=== PATIENT | male | born 1975 | race Caucasian/White ===

== ENCOUNTER → 2019-12-23 | Day surgery (SDC) | payer BC ==
[~2019-12-23] MED LIST: Brimonidine 0.2% Ophth Soln 5 ML Bottle EYERT SCH; Phenylephrine 2.5% Ophth Soln 2 ML Bot EYERT SCH; Tropicamide 1% Ophth Soln 15 ML Bottle EYERT SCH
== END ==
LOC: JD.SDS 10:00
PROVIDERS: ATTEND Ophthalmology
DX: E10.36 Type 1 diabetes mellitus with diabetic cataract (principal); H26.491 Other secondary cataract, right eye; E10.3513 Type 1 diabetes mellitus with proliferative diabetic retinopathy with macular edema, bilateral; H31.093 Other chorioretinal scars, bilateral; H35.373 Puckering of macula, bilateral; H17.813 Minor opacity of cornea, bilateral; H40.1134 Primary open-angle glaucoma, bilateral, indeterminate stage; Z79.4 Long term (current) use of insulin; Z79.82 Long term (current) use of aspirin; Z79.899 Other long term (current) drug therapy; Z98.42 Cataract extraction status, left eye; Z98.41 Cataract extraction status, right eye; Z96.1 Presence of intraocular lens